=== PATIENT | female | born 1980 | race Caucasian/White ===

== ENCOUNTER 2016-10-20 23:26 | Observation (INO) | payer OTHER ==
[~2016-10-20] VITALS: Ht 172.7 cm; Wt 121.2 kg
[~2016-10-20 23:26] MED LIST: AMBIEN10 MG PO; BUSPAR10 MG PO; CHEWABLE MULTI1 EACH PO; CIPRO500 MG PO; CLONAZEPAM0.5 MG PO; DILAUDID2 MG PO; KEFLEX500 MG PO; LEXAPRO20 MG PO; NORCO 5/3251 TABLET PO; PROPRANOLOL HCL40 MG PO; TRAZODONE HCL100 MG PO; TUMS500 MG PO; ZOFRAN4 MG PO
[2016-10-21 00:35] LABS: HEMATOCRIT 40.5 % (36.0-46.0); MCH 30.4 PG (29.0-34.0); MCHC 34.6 G/DL (30.0-36.0); MEAN PLAT.VOLUME 10.6 uM^3 (9.5-12.4); PLATELET COUNT 269 K/uL (156-360); RBC DIS.WIDTH-CV 12.8 % (11.8-14.6); RBC DIS.WIDTH-SD 41.3 % (39-53); WHITE BLOOD COUNT 9.8 K/uL (4.1-10.2)
[2016-10-21 00:46] LABS: CHLORIDE 108 mEq/L (99-109); POTASSIUM 3.7 mEq/L (3.7-5.4); SODIUM 137 mEq/L (136-147)
[2016-10-21 00:49] LABS: GLUCOSE 89 mg/dL (70-99)
[2016-10-21 00:50] LABS: ANION GAP 10 MEQ/L (2-14)
[2016-10-21 00:51] LABS: ADD MIUA? NO; BILIRUBIN NEGATIVE; BLOOD NEGATIVE; COLOR YELLOW ((YELLOW)); GLUCOSE (STRIP) NEGATIVE; KETONES NEGATIVE; LEUKOCYTES NEGATIVE; NITRITE NEGATIVE; PROTEIN (STRIP) NEGATIVE; SPECIFIC GRAVITY 1.011 (1.000-1.030); UCUL ADDED? NO; UROBILINOGEN 0.2 MG/DL (0.2-1.0)
[2016-10-21 00:51] LABS: TOTAL BILIRUBIN 0.3 mg/dL (0.0-1.0)
[2016-10-21 00:52] LABS: ALKALINE PHOSPHATASE 92 IU/L (3-129)
[2016-10-21 00:53] LABS: GFR ESTIMATE (CALCULATED) > 59 mL/min/
[2016-10-21 00:54] LABS: UREA NITROGEN (BUN) 13 mg/dL (9-23)
[2016-10-21 00:56] LABS: LIPASE 94 U/L (1.0-51.0)
[2016-10-21 01:06] LABS: QUANTITATIVE HCG < 4.0 MIU/ML
[2016-10-21 05:50] VITALS: BP 138/67
[2016-10-21 08:05] VITALS: BP 136/57
[2016-10-21] MEDS ORDERED: QUETIAPINE FUM100 MG PO (09:08)
[2016-10-21] MEDS ORDERED: PROMETHAZINE HC25 M1 PO (09:09)
[2016-10-21] MEDS ORDERED: INDOCIN50 MG PO (09:09)
[2016-10-21] MEDS ORDERED: DIAMOX250 MG PO (09:10)
[2016-10-21] MEDS ORDERED: BUTALB-APAP-CA1 EACH PO (09:10)
[2016-10-21] MEDS ORDERED: CARAFATE100 MG/ML PO (09:11)
[2016-10-21] MEDS ORDERED: ERGOCALCIF50000 UNIT PO (09:11)
[2016-10-21] MEDS ORDERED: CLONAZEPAM0.5 M1 PO (09:12)
[2016-10-21] MEDS ORDERED: CEPHALEXIN500 MG PO (09:13)
[2016-10-21] MEDS ORDERED: IRON 100-VITAM1 EACH PO (09:14)
[2016-10-21] MEDS ORDERED: BIOTIN1000 MICRO PO (09:14)
[2016-10-21] MEDS ORDERED: THERAGRAN1 TABLET PO (09:15)
[2016-10-21] MEDS ORDERED: EXCEDRIN MIGRA1 EAC1 PO (09:16)
[2016-10-21 11:12] VITALS: BP 127/80
[2016-10-21 14:59] LABS: APPEARANCE LT.RED/HAZY; RED CELL AREA COUNTED 0.4; RED CELL COUNT 10150 /MM^3 (0-1); RED CELL DILUTION 1; WBC AREA COUNTED 18; WBC DILUTION 1; WHITE CELL COUNT 9 /MM^3 (0-5); WHITE CELL RAW COUNT 17
[2016-10-21 15:06] LABS: CSF EOSINOPHILS 1 % (0-25); MONO RAW COUNT 21; MONONUCLEAR WBC'S 21 % (50-90); POLY RAW COUNT 78; POLYNUCLEAR WBC'S 78 % (0-3)
[2016-10-21 15:09] LABS: APPEARANCE (RECHECK) LT.RED/HAZY; CSF TUBE NUMBER (RECHECK) TUBE #1; RED CELL AREA COUNTED 0.4; RED CELL COUNT (RECHECK) 4450 /MM^3 (0-1); RED CELL DILUTION 1
[2016-10-21 15:50] VITALS: BP 127/62
[2016-10-21 20:02] VITALS: BP 103/55
[2016-10-21 23:51] VITALS: BP 110/59
[2016-10-22 04:01] VITALS: BP 122/58
[2016-10-22 04:58] LABS: MCH 30.6 PG (29.0-34.0); MCHC 33.8 G/DL (30.0-36.0); MCV 90.7 FL (83-99); MEAN PLAT.VOLUME 10.9 uM^3 (9.5-12.4); PLATELET COUNT 243 K/uL (156-360); RBC DIS.WIDTH-CV 12.9 % (11.8-14.6); RBC DIS.WIDTH-SD 42.8 % (39-53); RED BLOOD COUNT 4.41 M/uL (3.80-5.20); WHITE BLOOD COUNT 10.2 K/uL (4.1-10.2)
[2016-10-22 05:29] LABS: CHLORIDE 112 mEq/L (99-109); POTASSIUM 3.8 mEq/L (3.7-5.4); SODIUM 139 mEq/L (136-147)
[2016-10-22 05:31] LABS: GLUCOSE 88 mg/dL (70-99)
[2016-10-22 05:32] LABS: ANION GAP 10 MEQ/L (2-14)
[2016-10-22 05:34] LABS: GFR ESTIMATE (CALCULATED) > 59 mL/min/
[2016-10-22 05:35] LABS: UREA NITROGEN (BUN) 13 mg/dL (9-23)
[2016-10-22 07:40] VITALS: BP 118/56
[2016-10-22 12:34] VITALS: BP 128/66
[2016-10-22] MEDS ORDERED: TOPIRAMATE25 MG PO (14:26)
[2016-10-22 16:18] VITALS: BP 113/61
== END 2016-10-22 17:28 | disposition home or self-care (01) ==
LOC: EME 23:26 → EDOF 10-21 04:33 → 5WEST 10-21 05:47
PROVIDERS: Emergency Medicine; Hospitalist
PROC: 009U3ZX Drainage of Spinal Canal, Percutaneous Approach, Diagnostic (ICD-10-PCS; principal; 2016-10-21)
DX: G93.2 Benign intracranial hypertension (principal); R51 Headache; E86.0 Dehydration; R11.2 Nausea with vomiting, unspecified; H53.8 Other visual disturbances; R42 Dizziness and giddiness; F17.200 Nicotine dependence, unspecified, uncomplicated; Z98.84 Bariatric surgery status; E66.01 Morbid (severe) obesity due to excess calories; Z68.41 Body mass index [BMI] 40.0-44.9, adult
CPT/HCPCS: 62270; 70450; 77003; 80048; 80053; 81003; 82945; 83690; 84157; 84702; 85027; 87070; 87205; 89051; 99281; 99285; G0378; J0780; J1100; J1120; J1885; J2405; J7030